=== PATIENT | female | born 2000 | race Caucasian/White ===

== ENCOUNTER 2020-04-25 06:23 | Inpatient (IN) | payer OTHER, SELFPAY ==
[~2020-04-25] VITALS: Ht 144.8 cm; Wt 80.7 kg
[2020-04-25] MEDS ORDERED: NALBUPHINE HCL 10 MG/ML AMP IVP PRN (07:15)
[2020-04-25] MEDS ORDERED: OXYTOCIN/0.9 % SODIUM CHLORIDE 1,000 ML IV SCH (07:15)
[2020-04-25] MEDS ORDERED: LR 1,000 ML IV SCH (07:15)
[2020-04-25] MEDS ORDERED: LR 500 ML IV ONE (07:15)
[2020-04-25] MEDS ORDERED: TERBUTALINE SULFATE 1 MG/ML VIAL SUBCUT ONE (07:15)
[2020-04-25 07:36] LABS: BASOPHILS % (AUTO) 0.5 % (0.0-2.0); EOSINOPHILS % (AUTO) 0.5 % (0.0-4.0); HEMATOCRIT 38.9 % (36-48); HEMOGLOBIN 12.7 g/dL (12.0-16.0); LYMPHOCYTES # (AUTO) 1.4 K/uL (1.0-5.5); MEAN CORPUSCULAR HEMOGLOBIN 29 pg (27-31); MEAN CORPUSCULAR HGB CONC 33 % (32-36); MEAN CORPUSCULAR VOLUME 90 fL (79.0-98.0); MONOCYTES # (AUTO) 0.5 K/uL (0.0-1.0); MONOCYTES % (AUTO) 5.7 % (1.7-9.3); NEUTROPHILS % (AUTO) 75.3 % (40.0-70.0); PLATELET COUNT (AUTO) 264 K/uL (130-430); RED BLOOD CELL COUNT(AUTO) 4.34 MIL/uL (4.2-6.2); RED CELL DISTRIBUTION WIDTH 13.8 % (9.0-15.0); WHITE BLOOD COUNT (AUTO) 7.9 K/uL (4.5-11.0)
[2020-04-25] MEDS ORDERED: AMPICILLIN SODIUM 2 GM in NS 100 ML IV ONE (08:15)
[2020-04-25] MEDS ORDERED: AMPICILLIN SODIUM 2 GM VIAL ONE (08:17)
[2020-04-25] MEDS ORDERED: OXYCODONE/ACETAMINOPHEN 5-325 TABLET PO PRN (09:15)
[2020-04-25] MEDS ORDERED: HYDROcodone/ACETAMIN 5-325 MG TAB (NORCO/ VICODIN) PO PRN (09:15)
[2020-04-25] MEDS ORDERED: DERMOPLAST SPRAY TP ONE (11:25)
[2020-04-25] MEDS ORDERED: DERMOPLAST SPRAY TP PRN (11:25)
[2020-04-25] MEDS ORDERED: IBUPROFEN 600 MG TABLET ONE ×2 (12:33→17:41)
[2020-04-26] MEDS: IBUPROFEN 600 MG TABLET PO SCH ×4 (00:14→18:30)
[2020-04-26] MEDS ORDERED: DOCUSATE SODIUM 100 MG CAPSULE PO PRN (00:30)
[2020-04-26 06:33] LABS: HEMATOCRIT 34.9 % (36-48); HEMOGLOBIN 11.6 g/dL (12.0-16.0)
[2020-04-26] MEDS ORDERED: OXYCODONE/ACETAMINOPHEN 5-325 TABLET PO PRN ×2 (12:00)
[2020-04-26] MEDS ORDERED: HYDROcodone/ACETAMIN 5-325 MG TAB (NORCO/ VICODIN) PO PRN (12:00)
== END 2020-04-26 19:00 | disposition home or self-care (01) | DRG 560 ==
LOC: SPU 06:23 → OBSVTOIN 07:07
PROVIDERS: ADMIT Obstetrics & Gynecology; ATTEND Obstetrics & Gynecology
PROC: 10E0XZZ Delivery of Products of Conception, External Approach (ICD-10-PCS; principal; 2020-04-25)
DX: O60.14X0 Preterm labor third trimester with preterm delivery third trimester, not applicable or unspecified (principal); Z20.822 Contact with and (suspected) exposure to COVID-19; Z3A.36 36 weeks gestation of pregnancy; Z37.0 Single live birth
CPT/HCPCS: 36415; 81002-TC; 85018-TC; 85025; 86886; 86900; 86901; G0378; J0290; J2590